=== PATIENT | female | born 2005 ===

== ENCOUNTER 2025-01-16 18:00 | Emergency (ER) | payer MEDICAID ==
[~2025-01-16] VITALS: Ht 154.9 cm; Wt 68.2 kg
[2025-01-16 18:28] VITALS: BP 115/80; PULSE 88; RESP 16; TEMP 97.7; O2SAT 100
== END 2025-01-16 20:53 | disposition left against medical advice (07) ==
LOC: ER 18:03
DX: M54.2 Cervicalgia (principal); M54.9 Dorsalgia, unspecified; Z53.21 Procedure and treatment not carried out due to patient leaving prior to being seen by health care provider; V89.2XXA Person injured in unspecified motor-vehicle accident, traffic, initial encounter; Y93.89 Activity, other specified; Y92.89 Other specified places as the place of occurrence of the external cause; Y99.8 Other external cause status